=== PATIENT | female | born 1985 | race American Indian/Alaskan Native ===

== ENCOUNTER 2017-05-15 09:45 | Emergency (ER) | payer BC, MEDICAID ==
[2017-05-15 09:51] VITALS: RESP 18; TEMP 98.7
--- NOTE | 2017-05-15 10:30 | C.PDOC ---
History Of Present Illness 32 y/o female with PMHx of lung cancer presents to ED with complaints of irregular vaginal bleeding for 1 week with associated cramping abdominal pain. Patient states on 04/05 she has normal period and then on 05/05 had period for 1 day then stopped. Patient states she had vaginal bleeding again on 05/07 and has not stopped since. Patient denies dysuria, back pain, fever, chills or any other complaints at this time. Time Seen by Provider: 05/15/17 09:56 Chief Complaint (Nursing): Female Genitourinary History Per: Patient History/Exam Limitations: no limitations Onset/Duration Of Symptoms: Days Current Symptoms Are (Timing): Still Present Quality Of Discomfort: Cramping Past Medical History Reviewed: Historical Data, Nursing Documentation, Vital Signs Vital Signs: Last Vital Signs Temp 98.7 F 05/15/17 09:49 Pulse 69 05/15/17 12:31 Resp 18 05/15/17 12:31 BP 124/76 05/15/17 12:31 Pulse Ox 97 05/15/17 12:31 - Medical History PMH: No Chronic Diseases Surgical History: No Surg Hx Family History: States: No Known Family Hx - Social History Hx Tobacco Use: No Hx Alcohol Use: No Hx Substance Use: No - Immunization History Hx Tetanus Toxoid Vaccination: No Hx Influenza Vaccination: No Hx Pneumococcal Vaccination: No Review Of Systems Constitutional: Negative for: Fever, Chills Gastrointestinal: Positive for: Abdominal Pain. Negative for: Nausea, Vomiting Genitourinary: Positive for: Vaginal Bleeding. Negative for: Dysuria Musculoskeletal: Negative for: Back Pain Skin: Negative for: Rash Neurological: Negative for: Weakness, Numbness Physical Exam - Physical Exam Appears: Non-toxic, No Acute Distress Skin: Normal Color, Warm, Dry, No Rash Head: Atraumatic, Normacephalic Oral Mucosa: Moist Neck: Normal ROM, Supple Cardiovascular: Rhythm Regular Respiratory: Normal Breath Sounds, No Rales, No Rhonchi, No Wheezing Gastrointestinal/Abdominal: Soft, Tenderness (Suprapubic), No Guarding, No Rebound Back: No CVA Tenderness Extremity: Normal ROM, Capillary Refill (<2 seconds) Neurological/Psych: Oriented x3 ED Course And Treatment - Laboratory Results Result Diagrams: 05/15/17 10:39 05/15/17 10:39 Lab Interpretation: Normal Urine POC: Negative O2 Sat by Pulse Oximetry: 100 (RA) Pulse Ox Interpretation: Normal Progress Note: Urine Hcg (-). On re-evaluation abdomen soft non-tender. Discharged in stable condition. advised to follow up with METROLOGY SPECIALIST for further evaluation Reassessment Condition: Improved Medical Decision Making Medical Decision Making: Plan: UA, POC urine preg, Blood work Disposition Counseled Patient/Family Regarding: Studies Performed, Diagnosis, Need For Followup, Rx Given - Disposition Referrals: [facility] [Outside] [facility] [Outside] Disposition: HOME/ ROUTINE Disposition Time: 11:00 Condition: STABLE Additional Instructions: Follow up with your PMD and METROLOGY SPECIALIST for further evaluation Return to ED if any increase symptoms Instructions: Dysfunctional Uterine Bleeding (ED) Forms: [employer] (Zambian) - POA Present On Arrival: None - Clinical Impression Clinical Impression: DUB (dysfunctional uterine bleeding) - PA / REJECTED ITEMS CLERK / Resident Statement MD/DO has reviewed & agrees with the documentation as recorded. - Scribe Statement The provider has reviewed the documentation as recorded by the Taraiblexi Ruelas All medical record entries made by the Nelda were at my direction and personally dictated by me. I have reviewed the chart and agree that the record accurately reflects my personal performance of the history, physical exam, medical decision making, and the department course for this patient. I have also personally directed, reviewed, and agree with the discharge instructions and disposition.
[2017-05-15 10:45] LABS: BASO % 0.6 % (0.0-2.0); EOS % 0.6 % (0.0-4.0); HEMOGLOBIN 12.6 g/dL (11.0-16.0); LYMPH # 1.6 K/uL (1.0-4.3); LYMPH % 25.6 % (20.0-40.0); MEAN CELL VOLUME 94.5 fL (81.0-99.0); MEAN CORPUSCULAR HGB CONC 33.9 g/dL (33.0-37.0); MONO # 0.4 K/uL (0.0-0.8); MONO % 6.9 % (0.0-10.0); NEUT # 4.1 K/uL (1.8-7.0); NEUT % 66.3 % (50.0-75.0); RBC 3.93 Mil/uL (3.80-5.20); RED CELL DISTRIBUTION WIDTH 12.3 % (11.5-14.5); WHITE BLOOD COUNT 6.2 K/uL (4.8-10.8)
[2017-05-15 10:55] LABS: SQUAMOUS EPITHIAL 3 /hpf (0-5); URINE BILIRUBIN NEGATIVE (NEGATIVE); URINE BLOOD NEGATIVE (NEGATIVE); URINE CLARITY Clear (Clear); URINE COLOR Yellow (YELLOW); URINE GLUCOSE (UA) NORMAL (Normal); URINE LEUKOCYTE ESTERASE TRACE Leu/uL (Negative); URINE NITRATE NEGATIVE (NEGATIVE); URINE PROTEIN NEGATIVE (NEGATIVE)
[2017-05-15 10:59] LABS: ALB/GLOB RATIO 1.3 (1.0-2.1); ALBUMIN 4.1 g/dL (3.5-5.0); ALT/SGPT 22 U/L (9-52); AST/SGOT 18 U/L (14-36); BLOOD UREA NITROGEN 9 mg/dL (7-17); CALCIUM 7.9 mg/dl (8.6-10.4); GFR AFRICAN-AMERICAN > 60; GFR NON-AFRICAN AMERICAN > 60
[2017-05-15 12:32] VITALS: BP 124/76; PULSE 69
[2017-05-15 18:15] VITALS: O2SAT 100
== END 2017-05-15 12:32 | disposition home or self-care (01) ==
LOC: C.ER 09:45
DX: N93.8 Other specified abnormal uterine and vaginal bleeding (principal)

== ENCOUNTER 2018-03-17 08:43 | Emergency (ER) | payer BC ==
[2018-03-17] MEDS ORDERED: Sodium Chloride 0.9% 1,000 ML IV ONE (09:56)
[2018-03-17 10:33] LABS: BASO % 0.9 % (0.0-2.0); EOS % 0.6 % (0.0-4.0); HEMOGLOBIN 12.3 g/dL (11.0-16.0); LYMPH # 2.1 K/uL (1.0-4.3); LYMPH % 37.2 % (20.0-40.0); MEAN CELL VOLUME 95.3 fL (81.0-99.0); MEAN CORPUSCULAR HEMOGLOBIN 31.7 pg (27.0-31.0); MEAN CORPUSCULAR HGB CONC 33.3 g/dL (33.0-37.0); MEAN PLATELET VOLUME 10.3 fL (7.2-11.7); MONO # 0.5 K/uL (0.0-0.8); MONO % 8.4 % (0.0-10.0); NEUT % 52.9 % (50.0-75.0); RBC 3.87 Mil/uL (3.80-5.20); RED CELL DISTRIBUTION WIDTH 12.6 % (11.5-14.5); WHITE BLOOD COUNT 5.7 K/uL (4.8-10.8)
[2018-03-17] MEDS ORDERED: Iohexol 240 (50 ml) PO ONE (10:35)
[2018-03-17] MEDS ORDERED: Sodium Chloride 0.9% 1,000 ML ONE (10:42)
[2018-03-17 10:44] LABS: SQUAMOUS EPITHIAL 4 /hpf (0-5); URINE BACTERIA RARE (<OCC); URINE BILIRUBIN NEGATIVE (NEGATIVE); URINE BLOOD NEGATIVE (NEGATIVE); URINE CLARITY Clear (Clear); URINE COLOR Amber (YELLOW); URINE GLUCOSE (UA) NORMAL (Normal); URINE LEUKOCYTE ESTERASE 1+ Leu/uL (Negative); URINE PROTEIN 1+ mg/dL (NEGATIVE)
[2018-03-17] MEDS ORDERED: Iohexol 240 (50 ml) ONE (10:48)
[2018-03-17 11:06] LABS: ALB/GLOB RATIO 1.3 (1.0-2.1); ALBUMIN 4.2 g/dL (3.5-5.0); ALT/SGPT 26 U/L (9-52); AST/SGOT 27 U/L (14-36); BLOOD UREA NITROGEN 13 mg/dL (7-17); CALCIUM 8.8 mg/dl (8.6-10.4); GFR NON-AFRICAN AMERICAN > 60; LIPASE 52 U/L (23-300)
--- NOTE | 2018-03-17 11:10 | C.PDOC ---
History Of Present Illness 33 yo female w/o significant PMHx come in for evaluation of Left lower abdominal pain gradually developed for past 1 week . Pt reports, pain is localized over LLQ/Left body side, constant, aching. Pt sts, "was seen by PMD last week, had US and was told I might have lipoma and doctor order MRI for me". Otherwise, pt denies fever, chills, CP, SOB, dyspnea, diaphoresis, N/V/D, change in appetite, denies change in pain with food intake, back pain, UTI sx. Ambulate to ED for evaluation, not in nay apparent distress. Time Seen by Provider: 03/17/18 09:22 Chief Complaint (Nursing): Abdominal Pain History Per: Patient Past Medical History Reviewed: Historical Data, Nursing Documentation, Vital Signs Vital Signs: Last Vital Signs Temp 98.5 F 03/17/18 09:10 Pulse 73 03/17/18 09:10 Resp 20 03/17/18 09:10 BP 141/97 H 03/17/18 09:10 Pulse Ox 96 03/17/18 09:10 - Medical History PMH: No Chronic Diseases Surgical History: No Surg Hx Family History: States: Unknown Family Hx - Social History Hx Tobacco Use: No Hx Alcohol Use: No Hx Substance Use: No - Immunization History Hx Tetanus Toxoid Vaccination: No Hx Influenza Vaccination: No Hx Pneumococcal Vaccination: No Review Of Systems Except As Marked, All Systems Reviewed And Found Negative. Constitutional: Negative for: Fever, Chills ENT: Negative for: Throat Pain Cardiovascular: Negative for: Chest Pain, Palpitations, Edema, Light Headedness Respiratory: Negative for: Cough, Shortness of Breath, Wheezing Gastrointestinal: Positive for: Abdominal Pain, Constipation. Negative for: Nausea, Vomiting, Diarrhea, Melena, Hematochezia, Hematemesis, Rectal Pain Musculoskeletal: Negative for: Neck Pain, Back Pain Skin: Negative for: Rash Neurological: Negative for: Weakness, Numbness, Headache, Dizziness Physical Exam - Physical Exam Appears: Well, Non-toxic, No Acute Distress Skin: Normal Color, Warm, Dry, No Rash Head: Normacephalic Eye(s): bilateral: PERRL Nose: No Flaring, No Discharge Oral Mucosa: Moist Throat: No Erythema, No Drooling Neck: Supple Cardiovascular: Rhythm Regular, No Murmur, No JVD Respiratory: No Decreased Breath Sounds, No Accessory Muscle Use, No Stridor, No Wheezing Gastrointestinal/Abdominal: Soft, Tenderness (mild LLQ), No Distention, No Guarding, No Rebound Back: No CVA Tenderness Extremity: Normal ROM, No Deformity, No Swelling Neurological/Psych: Oriented x3, Normal Speech ED Course And Treatment - Laboratory Results Result Diagrams: 03/17/18 10:29 03/17/18 10:29 Lab Interpretation: Normal Urine POC: Negative O2 Sat by Pulse Oximetry: 96 Pulse Ox Interpretation: Normal - CT Scan/US CT A/P with PO+IV contrast Other Rad Studies (CT/US): Radiology Report Reviewed CT/US Interpretation: Accession No. : [id number]. Patient Name / ID : MICHAEL CASTRO / [id number]. Exam Date : 03/17/2018 12:10:57 ( Approved ). Study Comment : Sex / Age : F / 33Y. Creator : Delmy Walden. Dictator : Sammi David MD. Caretaker : Rescue Boat Operator : Sammi David MD. Approver2 : Report Date : 03/17/2018 12:33:51. My Comment : . This report is currently processing and HAS NOT BEEN OFFICIALLY SIGNED BY THE PHYSICIAN - ESTIMATED TIME OF APPROVAL IS 03/17/2018 12:57. PROCEDURE: CT Abdomen and Pelvis with oral and IV contrast. HISTORY: left lower abd pain. COMPARISON: None available. TECHNIQUE: Contiguous axial images of the abdomen and pelvis. Oral and IV contrast was administered. Coronal and Sagittal reformats generated and reviewed. Contrast dose: 100 mL Visipaque IV. Radiation dose: Total exam DLP = 979.44 mGy-cm. This CT exam was performed using one or more of the following dose reduction techniques: Automated exposure control, adjustment of the mA and/or kV according to patient size, and/or use of iterative reconstruction technique. FINDINGS: LOWER THORAX: No visible consolidation, pleural effusion, or pneumothorax. LIVER: Unremarkable. GALLBLADDER AND BILE DUCTS: Unremarkable. PANCREAS: Unremarkable. SPLEEN: Unremarkable. ADRENALS: Unremarkable. KIDNEYS AND URETERS: The kidneys enhance symmetrically. No hydronephrosis or obstructing renal calculus. BLADDER: The urinary bladder appears unremarkable. REPRODUCTIVE: Retroverted uterus is present. Probable bilateral ovarian cysts. APPENDIX: The appendix appears within normal limits of caliber. No secondary signs of acute appendicitis. BOWEL: The stomach is nondistended. The bowel loops appear within normal limits of caliber without evidence of intestinal obstruction. PERITONEUM: No significant free fluid. No definite free air. LYMPH NODES: No bulky lymphadenopathy identified. VASCULATURE: No aortic aneurysm. No atherosclerotic calcification or mural plaque present. BONES: No acute osseous abnormality is detected. OTHER FINDINGS: None. IMPRESSION: Suspect bilateral ovarian cyst. Pelvic ultrasound may be considered for further evaluation. Progress Note: PT WAS OBS IN ED FOR 4 HOURS AND REMAINED STABLE. Pt was able tolerate Po contrast well. On re-evaluation, pt is asymptomatic, afebrile, hemodynamicaly stable. Non-toxic. neck: Supple, (-) JVD. Lungs: CTA B/L, BS equal B/L. CVS: (+)S1S2, reg. Abd: benign, (-) guarding, (-) rebound, (-) localized tenderness. back: (-) CVA tenderness. Blood work review and appears normal. CT A/P w/PO+IV contrast: no acute abnormalities, ? ovarian cyst B/L. results review and discussed with patient. Ref. to F/u with VACUUM COOKER OPERATOR, PMD in 2-3 days for re-evaluation. return if any new changes. Disposition Counseled Patient/Family Regarding: Studies Performed, Diagnosis, Need For Followup, Rx Given - Disposition Disposition: HOME/ ROUTINE Disposition Time: 12:55 Condition: STABLE Additional Instructions: Take Ibuprofen as need for pain Follow up with PMD, VACUUM COOKER OPERATOR in 2-3 days for re-evaluation. return if any new changes. Prescriptions: traMADol [Ultram] 50 mg PO TID #7 tab Instructions: Ovarian Cyst (DC) Forms: [employer] (Kinyarwanda) - Clinical Impression Clinical Impression: Ovarian cyst
[2018-03-17] MEDS ORDERED: Iodixanol 320 MG/ML 100 ML BOTTLE IV ONE (11:30)
[2018-03-17 13:23] VITALS: BP 126/88; PULSE 58; RESP 18; TEMP 98.7
[2018-03-17 17:04] VITALS: O2SAT 96
--- NOTE | 2018-03-18 08:03 | CT ---
PROCEDURE: CT Abdomen and Pelvis with oral and IV contrast. HISTORY: left lower abd pain COMPARISON: None available. TECHNIQUE: Contiguous axial images of the abdomen and pelvis. Oral and IV contrast was administered. Coronal and Sagittal reformats generated and reviewed. Contrast dose: 100 mL Visipaque IV Radiation dose: Total exam DLP = 979.44 mGy-cm. This CT exam was performed using one or more of the following dose reduction techniques: Automated exposure control, adjustment of the mA and/or kV according to patient size, and/or use of iterative reconstruction technique. FINDINGS: LOWER THORAX: No visible consolidation, pleural effusion, or pneumothorax. LIVER: Unremarkable. GALLBLADDER AND BILE DUCTS: Unremarkable. PANCREAS: Unremarkable. SPLEEN: Unremarkable. ADRENALS: Unremarkable. KIDNEYS AND URETERS: The kidneys enhance symmetrically. No hydronephrosis or obstructing renal calculus. BLADDER: The urinary bladder appears unremarkable. REPRODUCTIVE: Retroverted uterus is present. Probable bilateral ovarian cysts. APPENDIX: The appendix appears within normal limits of caliber. No secondary signs of acute appendicitis. BOWEL: The stomach is nondistended. The bowel loops appear within normal limits of caliber without evidence of intestinal obstruction. PERITONEUM: No significant free fluid. No definite free air. LYMPH NODES: No bulky lymphadenopathy identified. VASCULATURE: No aortic aneurysm. No atherosclerotic calcification or mural plaque present. BONES: No acute osseous abnormality is detected. OTHER FINDINGS: None. IMPRESSION: Suspect bilateral ovarian cyst. Pelvic ultrasound may be considered for further evaluation.
== END 2018-03-17 13:23 | disposition home or self-care (01) ==
LOC: C.ER 08:43
DX: N83.202 Unspecified ovarian cyst, left side (principal); N83.201 Unspecified ovarian cyst, right side
CPT/HCPCS: 74177; 80053; 81001; 83690; 85025; 96360; 99285; J7030; Q9966; Q9967

== ENCOUNTER 2018-06-09 22:12 | Emergency (ER) | payer BC ==
--- NOTE | 2018-06-09 23:07 | C.PDOC ---
History Of Present Illness Patient had lipoma excised 3 weeks ago presents now with swelling at surgical site. Denies fever, chills, or erythema. Patient is tolerating PO. She did not take anything for the discomfort. Time Seen by Provider: 06/09/18 23:07 Chief Complaint (Nursing): Abdominal Pain History Per: Patient History/Exam Limitations: no limitations Onset/Duration Of Symptoms: Days Current Symptoms Are (Timing): Still Present Severity: Moderate Pain Scale Rating Of: 4 Location Of Pain/Discomfort: Other (Left lateral) Radiation Of Pain To:: None Quality Of Discomfort: Unable To Describe Associated Symptoms: denies: Fever, Chills, Other (Erythema) Exacerbating Factors: None Alleviating Factors: None Recent travel outside of the [place]: No Abnormal Vaginal Bleeding: No Past Medical History Reviewed: Historical Data, Nursing Documentation, Vital Signs Vital Signs: Last Vital Signs Temp 98.3 F 06/09/18 22:39 Pulse 77 06/09/18 22:39 Resp 18 06/09/18 22:39 BP 122/83 06/09/18 22:39 Pulse Ox 98 06/09/18 22:39 Family History: States: No Known Family Hx - Social History Hx Tobacco Use: No Hx Alcohol Use: No Hx Substance Use: No - Immunization History Hx Tetanus Toxoid Vaccination: No Hx Influenza Vaccination: No Hx Pneumococcal Vaccination: No Review Of Systems Constitutional: Negative for: Fever, Chills Cardiovascular: Negative for: Chest Pain, Palpitations Respiratory: Negative for: Cough, Shortness of Breath Gastrointestinal: Negative for: Nausea, Vomiting Skin: Positive for: Other (Swelling to surgical site. No erythema) Neurological: Negative for: Weakness, Numbness Physical Exam - Physical Exam Appears: Non-toxic Skin: Warm, Dry Head: Normacephalic Oral Mucosa: Moist Chest: Symmetrical, No Tenderness Cardiovascular: Rhythm Regular Respiratory: No Rales, No Rhonchi, No Wheezing Gastrointestinal/Abdominal: Soft, No Guarding, No Rebound, Other (4x6cm area of induration to left lateral aspect with well healed surgical scar) Back: No CVA Tenderness Neurological/Psych: Oriented x3 ED Course And Treatment - Laboratory Results Result Diagrams: 06/09/18 23:43 06/09/18 23:43 O2 Sat by Pulse Oximetry: 98 (Room air) Pulse Ox Interpretation: Normal Progress Note: Blood work and urinalysis ordered. Reevaluation Time: 01:49 Reassessment Condition: Improved Medical Decision Making Medical Decision Making: Upon provider reevaluation patient is feeling better, is medically stable, and requires no further treatment in the ED at this time. Patient will be discharged home with Rx for motrin . Counseling was provided and all questions were answered regarding diagnosis and need for follow up with dr chapman. There is agreement to discharge plan. Return if symptoms persist or worsen. Disposition Counseled Patient/Family Regarding: Studies Performed, Diagnosis, Need For Followup, Rx Given - Disposition Referrals: Alex Chapman MD [Medical Doctor] - Disposition: HOME/ ROUTINE Disposition Time: 23:07 Condition: FAIR Additional Instructions: Please return if symptoms recur or you have fever, chills, redness or discharge from the surgical site Instructions: Acute Abdomen (Belly Pain), Adult (DC) Forms: [employer] (Icelandic) - Clinical Impression Clinical Impression: Seroma after procedure - Scribe Statement The provider has reviewed the documentation as recorded by the Scriblexi Tijerina All medical record entries made by the Scriblexi were at my direction and personally dictated by me. I have reviewed the chart and agree that the record accurately reflects my personal performance of the history, physical exam, medical decision making, and the department course for this patient. I have also personally directed, reviewed, and agree with the discharge instructions and disposition.
[2018-06-09 23:46] LABS: BASO # 0.1 K/uL (0.0-0.2); BASO % 0.7 % (0.0-2.0); EOS # 0.1 K/uL (0.0-0.7); EOS % 0.9 % (0.0-4.0); HEMOGLOBIN 12.3 g/dL (11.0-16.0); LYMPH # 2.9 K/uL (1.0-4.3); LYMPH % 37.3 % (20.0-40.0); MEAN CORPUSCULAR HEMOGLOBIN 31.9 pg (27.0-31.0); MEAN CORPUSCULAR HGB CONC 33.2 g/dL (33.0-37.0); MONO # 0.5 K/uL (0.0-0.8); MONO % 5.9 % (0.0-10.0); NEUT # 4.3 K/uL (1.8-7.0); NEUT % 55.2 % (50.0-75.0); NRBC % 0.1 % (0.0-2.0); RBC 3.85 Mil/uL (3.80-5.20); RED CELL DISTRIBUTION WIDTH 12.1 % (11.5-14.5); WHITE BLOOD COUNT 7.8 K/uL (4.8-10.8)
[2018-06-09 23:53] LABS: SQUAMOUS EPITHIAL 14 /hpf (0-5); URINE BILIRUBIN NEGATIVE (NEGATIVE); URINE BLOOD NEGATIVE (NEGATIVE); URINE CLARITY Hazy (Clear); URINE COLOR Yellow (YELLOW); URINE GLUCOSE (UA) NORMAL (Normal); URINE LEUKOCYTE ESTERASE 1+ Leu/uL (Negative); URINE PROTEIN NEGATIVE (NEGATIVE); URINE UROBILINOGEN NORMAL mg/dL (0.2-1.0)
[2018-06-09 23:54] LABS: HCG,QUALITATIVE URINE NEGATIVE (NEGATIVE)
[2018-06-09 23:59] LABS: BLOOD UREA NITROGEN 13 mg/dL (7-17); GFR NON-AFRICAN AMERICAN > 60
[2018-06-10] MEDS ORDERED: Iohexol 350mg/ml 100 ML ONE (00:18)
[2018-06-10 02:19] VITALS: BP 121/69; PULSE 78; RESP 20; TEMP 98; O2SAT 99
--- NOTE | 2018-06-10 09:44 | CT ---
CT abdomen and pelvis HISTORY: Left flank mass. COMPARISON: 03/17/2018 Technique: Multiple contiguous axial images were performed through the abdomen and pelvis with the use of intravenous contrast. Subsequently, sagittal and coronal reformatted images were obtained. Findings: Within the left anterior abdominal subcutaneous soft tissues, abutting the left lateral anterior abdominal wall musculature, there is a prominent collection/lesion measuring 6.3 x 3.3 x 6.5 centimeters containing multiple internal areas of nodularity and increased attenuation demonstrating a Hounsfield unit attenuation of 15. In addition, there is adjacent reticulation, edema, and fluid seen within the surrounding soft tissues. No evidence of extension into the intra-abdominal cavity. This is of uncertain clinical etiology and may represent an abscess collection versus phlegmon collection versus seroma versus hematoma versus complex cystic lesion versus additional etiology. Clinical correlation. Mild atelectasis at the lung bases. No pleural or pericardial effusion. Liver is preserved. Contracted gallbladder. Spleen is preserved. Adrenal glands are preserved. Pancreas is preserved. Upper abdominal bowel is preserved. Right kidney: No calculi or hydronephrosis. Left Kidney: No calculi or hydronephrosis. Mild thickening of the urinary bladder. Clinical correlation. Heterogeneous uterus and bilateral adnexa. Correlation with pelvic ultrasound may be helpful if clinically indicated to exclude possible fibroid and/or right adnexal lesion. Punctate right adnexal calcification. Fecal retention in the colon. Appendix is preserved. Few shotty para-aortic and inguinal lymph nodes. Few shotty mesenteric lymph nodes. Mild sclerosis of the left SI joint. Impression: 1. Within the left anterior abdominal subcutaneous soft tissues, abutting the left lateral anterior abdominal wall musculature, there is a prominent collection/lesion measuring 6.3 x 3.3 x 6.5 centimeters containing multiple internal areas of nodularity and increased attenuation demonstrating a Hounsfield unit attenuation of 15. In addition, there is adjacent reticulation, edema, and fluid seen within the surrounding soft tissues. No evidence of extension into the intra-abdominal cavity. This is of uncertain clinical etiology and may represent an abscess collection versus phlegmon collection versus seroma versus hematoma versus complex cystic lesion versus additional etiology. Clinical correlation. 2. Heterogeneous uterus and bilateral adnexa. Correlation with pelvic ultrasound may be helpful if clinically indicated to exclude possible fibroid and/or right adnexal lesion. Punctate right adnexal calcification. 3. Mild thickening of the urinary bladder. Clinical correlation. Additional findings as above. A preliminary report was generated at 1:37 a.m. on 06/10/[address] Davida Rueda from [employer].
== END 2018-06-10 02:18 | disposition home or self-care (01) ==
LOC: C.ER 22:12
DX: L76.34 Postprocedural seroma of skin and subcutaneous tissue following other procedure (principal); Y83.9 Surgical procedure, unspecified as the cause of abnormal reaction of the patient, or of later complication, without mention of misadventure at the time of the procedure
CPT/HCPCS: 74177; 80048; 81001; 84703; 85025; 99285; Q9967